=== PATIENT | male | born 1965 | race Caucasian/White ===

== ENCOUNTER → 2016-09-23 | Outpatient (CLI) | payer BC ==
[2016-09-23 09:25] LABS: ALT 32 U/L (21-72); AST 21 U/L (17-59); Alkaline Phosphatase 66 U/L (38-126); Anion Gap 10 mmol/L; Blood Urea Nitrogen 15 mg/dL (9-20); Calcium 9.9 mg/dL (8.4-10.2); Carbon Dioxide 24 mmol/L (22-30); Chloride 106 mmol/L (98-107); Cholesterol 194 mg/dL (<200); Glucose 91 mg/dL (74-99); HDL Cholesterol 57 mg/dL (40-60); Non-African American GFR(MDRD) >60 (>60 ml/min/1.73 sqM); Potassium 4.9 mmol/L (3.5-5.1); Sodium 140 mmol/L (137-145); Total Bilirubin 0.9 mg/dL (0.2-1.3); Total Protein 6.9 g/dL (6.3-8.2); Triglycerides 93 mg/dL (<150)
== END | disposition home or self-care (01) ==
LOC: LABWHC1 08:26
PROVIDERS: ATTEND Physician Assistant
DX: E78.5 Hyperlipidemia, unspecified (principal)
CPT/HCPCS: 36415; 80053; 80061

== ENCOUNTER 2016-10-05 10:39 | Day surgery (SDC) | payer BC ==
[2016-10-03 11:41] VITALS: BMI 26.4
[~2016-10-05 10:39] MED LIST: LACTATED RINGERS 1,000 ML IV SCH; LIDOCAINE 1% 20 ML VIAL (10MG/ML) FOR IV START INTRADERMA PRN
[2016-10-05 11:49] VITALS: TEMP 97.1
[2016-10-05] MEDS ORDERED: LIDOCAINE 1% INJ 10MG/ML (20 ML MDV) ONE (12:22)
[2016-10-05] MEDS ORDERED: PROPOFOL 10 MG/ML 20 ML VIAL IV ONE (12:22)
--- NOTE | 2016-10-05 12:40 | P.PCN ---
Date of Procedure: 10/05/16 Preoperative Diagnosis: Postoperative Diagnosis: Procedure(s) Performed: BRIEF HISTORY: Patient is a 51-year-old pleasant white male, scheduled for an elective colonoscopy as a part of screening for colorectal neoplasia. His father was diagnosed with colon cancer at age 48. Patient has been having colonoscopy every 3 years since age 37. He did have colon polyps twice in the past. He denies any symptoms. PROCEDURE PERFORMED: Colonoscopy. PREOPERATIVE DIAGNOSIS: Screening for colon cancer/family history of colon cancer. IV sedation per Anesthesia. PROCEDURE: After informed consent was obtained, the patient, was brought into the endoscopy unit. IV sedation was administered by Anesthesia under continuous monitoring. Digital rectal examination was normal. Initially the Olympus CF- 160 flexible video colonoscope was then inserted in the rectum, gradually advanced into the cecum without any difficulty. Careful examination was performed as the scope was gradually being withdrawn. Ileocecal valve and the appendiceal orifice were visualized and appeared normal. Prep was excellent. Mucosa of the cecum, ascending colon, transverse colon, descending colon, sigmoid colon, and rectum appeared normal. Retroflexion was performed in the rectum and no lesions were seen. The patient tolerated the procedure well. IMPRESSION: Normal-appearing colon from rectum to cecum with no evidence of colitis or colorectal neoplasia.. RECOMMENDATIONS: Findings of this examination were discussed with the patient as well as his family. He was advised to have a repeat screening colonoscopy in 3-5 years because of the strong family history of colon cancer. Implants: Indications for Procedure: Operative Findings: Description of Procedure:
[2016-10-05 12:55] VITALS: BP 133/86; PULSE 71; RESP 18
== END 2016-10-05 13:31 | disposition home or self-care (01) ==
LOC: ORWHC2ENDO 10:39
PROVIDERS: ATTEND Internal Medicine Gastroenterology
DX: Z12.11 Encounter for screening for malignant neoplasm of colon (principal); K21.9 Gastro-esophageal reflux disease without esophagitis; Z80.0 Family history of malignant neoplasm of digestive organs; E78.5 Hyperlipidemia, unspecified; Z79.1 Long term (current) use of non-steroidal anti-inflammatories (NSAID); Z79.899 Other long term (current) drug therapy; Z91.013 Allergy to seafood
CPT/HCPCS: J2001; J2704; G0105

== ENCOUNTER → 2017-03-06 | Outpatient (CLI) | payer BC ==
[2017-03-06 07:50] LABS: Basophils # (A) 0.1 k/uL (0-0.2); Basophils % (A) 1 %; CH 30.7; CHCM 33.6; Eosinophils # (A) 0.3 k/uL (0-0.7); Eosinophils % (A) 7 %; HCT 46.3 % (39.0-53.0); HDW 2.75; HGB 15.2 gm/dL (13.0-17.5); Luc # (Auto) 0.09; Luc % (Auto) 2; Lymphocytes # (A) 0.7 k/uL (1.0-4.8); Lymphocytes % (A) 16 %; MCH 30.2 pg (25.0-35.0); MCHC 32.8 g/dL (31.0-37.0); Mean Platelet Volume 8.1; Monocytes # (A) 0.4 k/uL (0-1.0); Monocytes % (A) 8 %; Neutrophils % (A) 66 %; RBC 5.04 m/uL (4.30-5.90); RDW 14.5 % (11.5-15.5); WBC 4.6 k/uL (3.8-10.6); WBC (Perox) 4.51
[2017-03-06 10:56] LABS: ALT 71 U/L (21-72); AST 35 U/L (17-59); Alkaline Phosphatase 63 U/L (38-126); Anion Gap 9 mmol/L; Blood Urea Nitrogen 17 mg/dL (9-20); Calcium 9.4 mg/dL (8.4-10.2); Carbon Dioxide 22 mmol/L (22-30); Chloride 108 mmol/L (98-107); Cholesterol 212 mg/dL (<200); Glucose 107 mg/dL (74-99); HDL Cholesterol 53 mg/dL (40-60); Non-African American GFR(MDRD) >60 (>60 ml/min/1.73 sqM); Potassium 4.6 mmol/L (3.5-5.1); Sodium 139 mmol/L (137-145); Total Bilirubin 0.5 mg/dL (0.2-1.3); Total Protein 5.9 g/dL (6.3-8.2)
[2017-03-06 11:25] LABS: Prostate Specific Antigen 0.53 ng/mL (0.00-4.00)
== END | disposition home or self-care (01) ==
LOC: LABWHC1 07:20
PROVIDERS: ATTEND Internal Medicine
DX: Z00.00 Encounter for general adult medical examination without abnormal findings (principal); E78.5 Hyperlipidemia, unspecified; Z12.5 Encounter for screening for malignant neoplasm of prostate; Z11.59 Encounter for screening for other viral diseases
CPT/HCPCS: 36415; 80053; 80061; 84153; 85025; 86803

== ENCOUNTER → 2017-10-06 | Outpatient (CLI) | payer BC ==
[2017-10-06 07:47] LABS: ALT 44 U/L (21-72); AST 30 U/L (17-59); Cholesterol 187 mg/dL (<200); HDL Cholesterol 57 mg/dL (40-60); LDL Cholesterol,Calculated 112 mg/dL (0-99); Triglycerides 89 mg/dL (<150)
== END | disposition home or self-care (01) ==
LOC: LABWHC1 06:56
PROVIDERS: ATTEND Internal Medicine
DX: E78.5 Hyperlipidemia, unspecified (principal)
CPT/HCPCS: 36415; 80061; 84450; 84460

== ENCOUNTER → 2018-09-06 | Outpatient (CLI) | payer BC ==
[2018-09-06 07:41] LABS: Basophils % (A) 1 %; Eosinophils # (A) 0.3 k/uL (0-0.7); Eosinophils % (A) 5 %; HCT 47.2 % (39.0-53.0); HGB 15.6 gm/dL (13.0-17.5); Lymphocytes # (A) 0.7 k/uL (1.0-4.8); Lymphocytes % (A) 13 %; MCH 29.8 pg (25.0-35.0); MCV 90.2 fL (80.0-100.0); Mean Platelet Volume 7.3; Monocytes # (A) 0.3 k/uL (0-1.0); Monocytes % (A) 6 %; Neutrophils # (A) 3.5 k/uL (1.3-7.7); Neutrophils % (A) 72 %; Platelet Count 218 k/uL (150-450); RBC 5.23 m/uL (4.30-5.90); RDW 13.7 % (11.5-15.5); WBC 4.9 k/uL (3.8-10.6)
[2018-09-06 07:42] LABS: Appearance,Urine Clear (Clear); Bilirubin,Urine Negative (Negative); Blood,Urine Negative (Negative); Color,Urine Colorless; Glucose,Urine (UA) Negative (Negative); Ketones,Urine Negative (Negative); Leukocyte Esterase,Urine Negative (Negative); Nitrite,Urine Negative (Negative); PH, Urine 6.5 (5.0-8.0); Protein,Urine Negative (Negative); Specific Gravity,Urine 1.006 (1.001-1.035); Urobilinogen,Urine <2.0 mg/dL (<2.0)
[2018-09-06 11:40] LABS: Albumin 4.4 g/dL (3.80-4.90); Albumin/Globulin Ratio 3.14 (1.60-3.17); Anion Gap 9.5 mmol/L (4.00-12.00); Calcium 9.4 mg/dL (8.7-10.3); Carbon Dioxide 22.5 mmol/L (21.6-31.8); Globulin 1.4 g/dL (1.6-3.3); LDL Cholesterol,Calculated 96.6 mg/dL (0.0-131.0); Potassium 4.5 mmol/L (3.5-5.5); Total Bilirubin 0.4 mg/dL (0.3-1.2); Total Protein 5.8 g/dL (6.2-8.2); VLDL Calculation 21.4 mg/dL (5.00-40.00)
== END | disposition home or self-care (01) ==
LOC: LABWHC1 06:59
PROVIDERS: ATTEND Internal Medicine
DX: Z00.00 Encounter for general adult medical examination without abnormal findings (principal); E78.5 Hyperlipidemia, unspecified; Z12.5 Encounter for screening for malignant neoplasm of prostate
CPT/HCPCS: 36415; 80053; 80061; 81003; 84153; 85025

== ENCOUNTER 2022-04-22 10:35 | Day surgery (SDC) | payer BC ==
[2022-04-20 10:08] VITALS: BMI 27.1
[~2022-04-22 10:35] MED LIST changes: -LIDOCAINE 1% 20 ML VIAL (10MG/ML) FOR IV START INTRADERMA PRN
[2022-04-22 11:37] VITALS: TEMP 97.7
[2022-04-22] MEDS ORDERED: PROPOFOL 10 MG/ML 20 ML VIAL IV ONE (12:13)
--- NOTE | 2022-04-22 12:31 | P.PCN ---
Date of Procedure: 04/22/22 Procedure(s) Performed: BRIEF HISTORY: Patient is a 56-year-old pleasant white male scheduled for an elective colonoscopy as a part of screening for colon cancer and family history of colon cancer. His father was diagnosed with colon cancer at age 48. PROCEDURE PERFORMED: Colonoscopy with biopsy. PREOPERATIVE DIAGNOSIS: And screening for colon cancer and family history of colon cancer. IV sedation per Anesthesia. PROCEDURE: After informed consent was obtained, the patient, was brought into the endoscopy unit. IV sedation was administered by Anesthesia under continuous monitoring. Digital rectal examination was normal. Initially the Olympus CF-160 flexible video colonoscope was then inserted in the rectum, gradually advanced into the cecum without any difficulty. Careful examination was performed as the scope was gradually being withdrawn. Ileocecal valve and the appendiceal orifice were visualized and appeared normal. Prep was excellent. Mucosa of the cecum, ascending colon, appeared normal. In the transverse colon there was a 5 mm polyp that was removed by cold biopsy. Rest of the transverse colon, descending colon, sigmoid colon, and rectum appeared normal. Retroflexion was performed in the rectum and no lesions were seen. The patient tolerated the procedure well. IMPRESSION: 5 mm transverse colon polyp status post cold biopsy Rest of the colon appeared normal RECOMMENDATIONS: Findings of this examination were discussed with the patient surveillance of his family. He was advised to follow with the biopsy results. Recommend repeat colonoscopy in 5 years because of the family history of colon cancer
[2022-04-22 13:00] VITALS: BP 147/90; PULSE 66; RESP 16
== END 2022-04-22 13:17 | disposition home or self-care (01) ==
LOC: ORWHC2ENDO 10:35
PROVIDERS: ATTEND Internal Medicine Gastroenterology
DX: Z12.11 Encounter for screening for malignant neoplasm of colon (principal); D12.3 Benign neoplasm of transverse colon; K21.9 Gastro-esophageal reflux disease without esophagitis; Z80.0 Family history of malignant neoplasm of digestive organs; Z91.013 Allergy to seafood; Z79.899 Other long term (current) drug therapy
CPT/HCPCS: 88305; 45380; J2704